=== PATIENT | female | born 1965 | race Caucasian/White ===

== ENCOUNTER 2016-08-18 12:56 | Emergency (ER) | payer OTHER ==
--- NOTE | ~2016-08-18 | CT2 ---
[facility] A Service of [facility] RADIOLOGY TEXT RESULTS PATIENT: BEHZAD SMITH LOCATION: [facility] : 65 UNIT #: [id number] AGE: [address]: Nahed Morales MD SEX: F ORDER DR: [id number] [facility] [address] [place], [place] [address] [id number] E MR#: [id number] [facility] #: [id number] NAME: BEHZAD SMITH : 1965 SEX: F STUDY DATE/TIME: 08/18/2016 14:49 UNIT: [facility] ROOM: STUDY DESCRIPTION: CT Abd and Pelv W Cont Attending Physician: Nahed Morales M.D. Ordering Physician: Rosie Nicole M.D. Primary Care Physician: Gordon Garcia Jr., M.D. MEDICAL IMAGING REPORT This report is preliminary unless electronic signature is present EXAM CT abdomen and pelvis, 08/18/2016 HISTORY Chest pain since last night. Hypertension. Prior hysterectomy. History per Dr. Morales right shoulder blade pain, hurts to move, cough, hurts in belly. Please see today's dedicated CT chest for findings above the diaphragm. This CT exam was performed with one or more of the following radiation dose reduction techniques: automatic exposure control, adjustment of mA and/or kV according to patient size, and iterative reconstruction. FINDINGS CT ABDOMEN: Liver, gallbladder, spleen notable only for calcified granulomata in the spleen. The pancreas, adrenal glands, and kidneys are normal. CT PELVIS: No inguinal adenopathy. Urinary bladder normal. Status post hysterectomy. I believe the patient retains a normal right ovary. Please correlate with operative history. Ovoid soft tissue density 2.8 cm structure in the right adnexa most consistent with an ovary. Left ovary not identified. No clearly suspicious adnexal structure. No pelvic fluid collection. No pelvic or retroperitoneal adenopathy. Distal esophagus, stomach, small bowel, appendix, colon unremarkable. Aorta normal in caliber. Scattered atherosclerotic arterial calcifications. Bony structures show no acute abnormality. IMPRESSION 1. No acute abnormality is seen in the abdomen or pelvis. 2. Patient is status post hysterectomy. Patient appears to retain a STS. [facility] A Service of [facility] RADIOLOGY TEXT RESULTS PATIENT: BE[facility]ZAD SMITH [id number] [birth year] UNIT #: [id number] AGE: [address]: Nahed Morales MD SEX: F ORDER DR: normal right ovary. Please correlate with surgical history. 3. Gallbladder, pancreas, kidneys and appendix normal in appearance. Remainder of alimentary canal unremarkable. No abnormal fluid collection. No free air. Dictated by... Gael Payne M.D. THIS IS AN ELECTRONICALLY VERIFIED REPORT Gael Payne M.D. at 08/19/2016 11:31 AM JASKARAN/jessica TD: 08/19/2016 02:35 JOB #: [id number] MEDICAL IMAGING REPORT Page 1 of 1 COPY
--- NOTE | ~2016-08-18 | CT16 ---
[facility] A Service of [facility] & [facility] RADIOLOGY TEXT RESULTS PATIENT: BEHZAD SMITH LOCATION: [facility] : 65 UNIT #: [id number] AGE: [address]: Nahed Morales MD SEX: F ORDER DR: [id number] [facility] [address] [place], [place] [address] [id number] E MR#: [id number] Acc #: [id number] NAME: BEHZAD SMITH : 1965 SEX: F STUDY DATE/TIME: 08/18/2016 14:49 UNIT: [facility] ROOM: STUDY DESCRIPTION: CT Angio Chest for PE Attending Physician: Nahed Morales M.D. Ordering Physician: Rosie Nicole M.D. Primary Care Physician: Gordon Garcia Jr., M.D. MEDICAL IMAGING REPORT This report is preliminary unless electronic signature is present EXAM CT angiography chest for PE HISTORY Hypertension, chest pain since last night. Prior hysterectomy. This CT exam was performed with one or more of the following radiation dose reduction techniques: automatic exposure control, adjustment of mA and/or kV according to patient size, and iterative reconstruction. FINDINGS CT pulmonary angiography performed with intravenous administration 100 mL Isovue-370. No prior CTs of chest for comparison. Thyroid unremarkable. No axillary, mediastinal or hilar adenopathy. There are calcified right hilar lymph nodes. Heart is normal in size. No pleural effusions. Liver and gallbladder unremarkable in visualized extent. Calcified splenic granulomata. Pancreas, adrenal glands, and kidneys unremarkable in visualized extent. No upper abdominal adenopathy. Visualized alimentary canal unremarkable. Pulmonary parenchyma shows underlying centrilobular emphysema. 3 mm somewhat irregularly marginated noncalcified nodule right middle lobe image 63, 4 mm noncalcified right upper lobe pulmonary nodule image 73, 6 mm noncalcified right middle lobe pulmonary nodule image 78. Inferior to this on image 80 there is a 4-5 mm noncalcified right middle lobe pulmonary nodule. A 7 mm noncalcified subpleural pulmonary nodule right lower lobe image 85, linear 7 mm noncalcified density at the extreme right lung base image #117 likely representing an area of scarring. Linear nodule not excluded. Tiny calcified granuloma left upper lobe. Tiny noncalcified pulmonary nodules seen in the anterior left upper lobe images 59 and 56. Attention at followup recommended. Tiny subpleural micronodule lateral left upper lobe image 82, 3 mm noncalcified nodule STS. [facility] A Service of [facility] RADIOLOGY TEXT RESULTS [facility]: [facility]ZAD SMITH [id number] [birth year] UNIT #: [id number] AGE: [address]: Nahed Morales MD SEX: F ORDER DR: left lower lobe image 97, a 2-3 mm noncalcified pulmonary nodule periphery lateral left lower lobe image 87. No evidence of pneumonia or edema. No pleural effusion and no pneumothorax. The pulmonary arteries are well opacified. No PE. No aortic dissection. Aorta appears normal in caliber. The visualized aortic branches appear patent. No acute-appearing bony abnormality. IMPRESSION 1. No PE. No aortic aneurysm or dissection. Visualized aortic branch vessels are patent. 2. Emphysema. There is no clear indication of acute infectious or inflammatory disease. No pleural effusion or pneumothorax. 3. Multiple bilateral noncalcified pulmonary nodules. Largest of these measures on the order of 7 mm in diameter. See it sales representative sizes and locations in body of report above. These are indeterminate in nature. Given patient's underlying emphysema, followup CT examination in 3-6 months is recommended unless there are outside studies demonstrating prolonged stability for up to at least 2 years. 4. 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 Calcified granuloma in the right upper lobe and calcified granulomata in the spleen. 5. No acute abnormality in the upper abdomen. Dictated by... Gael Payne M.D. THIS IS AN ELECTRONICALLY VERIFIED REPORT Gael Payne M.D. at 08/19/2016 11:31 AM JASKARAN/jessica TD: 08/19/2016 01:38 JOB #: [id number] MEDICAL IMAGING REPORT Page 1 of 1 COPY
--- NOTE | ~2016-08-18 | EKG ---
PATIENT: BEHZAD SMITH UNIT #: [id number] Ventricular Rate: 56 BPM Atrial Rate: 56 BPM P-R Interval: 128 ms QRS Duration: 78 ms Q-T Interval: 444 ms QTC Calculation(Bezet): 428 ms P [place]: 66 degrees Calculated R [place]: 13 degrees Calculated T [place]: 56 degrees Diagnosis Line: Sinus bradycardia Diagnosis Line: Otherwise normal ECG Diagnosis Line: No previous ECGs available Diagnosis Line: Confirmed by LAUREEN COLON MD ([id number]) on Diagnosis Line: 08/18/2016 10:20:10 PM INTERPRETING MD: DENA
[2016-08-18 13:28] LABS: BASOPHIL# 0.1 X10e3 (0-0.3); EOSINOPHIL# 0.1 X10e3 (0-0.7); EOSINOPHIL% 1.6 % (0.0-7.0); HEMATOCRIT 42.4 % (35.0-45.0); HEMOGLOBIN 14.7 gm/dL (12.0-16.0); LYMPHOCYTE# 1.6 X10e3 (1.0-3.5); LYMPHOCYTE% 25.2 % (17.0-45.0); MEAN CELL VOLUME 92.2 FL (83-96); MEAN CORPUSCULAR HEMOGLOBIN 31.9 PG (28-34); MEAN CORPUSCULAR HGB CONC 34.6 g/dL (30-36); MEAN PLATELET VOLUME 9.7 FL (6.5-11.5); MONOCYTE# 0.6 X10e3 (0-1.0); MONOCYTE% 9.2 % (3.0-12.0); NEUTROPHIL# 4.1 X10e3 (1.5-7.1); PLATELET COUNT 186 X10e3 (140-420); RED CELL DISTRIBUTION WIDTH 12.4 % (11.0-15.5); WHITE BLOOD COUNT 6.4 X10e3 (4.0-10.5)
[2016-08-18 13:31] LABS: DIFF IND NO
[2016-08-18 13:32] LABS: POC - CKMB <1.0 ng/mL (0.0-7.9); POC - TROPONIN <0.05 ng/mL (<=0.05)
[2016-08-18 13:51] LABS: ALBUMIN SERUM 4.2 g/dL (3.5-5.0); BILIRUBIN, DIRECT 0.1 mg/dL (0.0-0.2); BILIRUBIN,INDIRECT 0.6 mg/dL (0.0-0.9); BILIRUBIN,TOTAL 0.7 mg/dL (0.2-2.0); CALCIUM SERUM 9.1 mg/dL (8.4-10.2); CREATININE SERUM 0.5 mg/dL (0.6-1.4); GLOM FILT RATE Estimated 112.1 mL/min (>60); POTASSIUM 4.1 mmol/L (3.5-5.1)
[2016-08-18 14:11] LABS: AMYLASE 10 U/L (0-46); LIPASE 18 U/L (22-51)
[2016-08-18 14:18] LABS: INR 0.9; PARTIAL THROMBOPLASTIN TIME 26.8 SECONDS (23.5-31.3); PROTHROMBIN TIME (PATIENT) 9.9 SECONDS (9.6-11.5)
[2016-08-18 15:25] LABS: POC - CKMB <1.0 ng/mL (0.0-7.9); POC - TROPONIN <0.05 ng/mL (<=0.05)
== END 2016-08-18 17:51 | disposition home or self-care (01) ==
LOC: CED 12:56
PROVIDERS: Student in an Organized Health Care Education/Training Program
DX: R07.9 Chest pain, unspecified (principal); I10 Essential (primary) hypertension; R11.0 Nausea; J44.9 Chronic obstructive pulmonary disease, unspecified; F17.200 Nicotine dependence, unspecified, uncomplicated; Z90.710 Acquired absence of both cervix and uterus
CPT/HCPCS: 36415; 71275; 74177; 80048; 80076; 82150; 82553; 83690; 84484; 85025; 85610; 85730; 93005; 96374; 96375; 99284; C9113; J2270; J2405; Q9967